=== PATIENT | male | born 1985 | race Caucasian/White ===

== ENCOUNTER 2017-09-20 11:56 | Inpatient (IN) | payer OTHER ==
[2017-09-20 13:17] VITALS: BMI 19.4
--- NOTE | 2017-09-20 13:49 | HP ---
COWS - Scale Resting Pulse: 0= [place] 80 or Below Sweatin=Flushed/Facial Moisture Restless Observation: 3= Extraneous Movement Pupil Size: 2= Moderately Dilated Bone or Joint Aches: 2= Severe Diffuse Aches Runny Nose/ Eye Tearin= Runny Nose/Eyes GI Upset > 30mins: 3= Vomiting/Diarrhea Tremor Observation: 2= Slight Tremor Visible Yawning Observation: 2= >3x During Session Anxiety or Irritability: 2=Irritable/Anxious Goose Flesh Skin: 0=Smooth Skin COWS Score: 20 Admission ROS S - HPI Chief Complaint: I NEED HELP TO STOP USING HEROIN,COCAINE,MARIJUANA DEPENDENCE,SEEKING DETOX, WITHDRAWAL SYMPTOM,LAST DETOX 09/06 EMILY FERN NICOTINE DEPENDENCE SYNCOPE INSOMNIA NO SIGNIFICANT PERIOD OF SOBRIETY WEIGHT LOSS Allergies/Adverse Reactions: Allergies Allergy/AdvReac Type Severity Reaction Status Date / Time No Known Allergies Allergy Verified 09/20/17 13:41 History of Present Illness: THIS 32 YEARS OLD MALE WITH HEROIN,COCAINE,MARIJUANA DEPENDENCE,WITHDRAWAL SYMPTOM, SEEKING DETOX MENTION - Ebola screening Have you traveled outside of the country in the last 21 days: No (N) Have you had contact with anyone from an Ebola affected area: No Have you been sick,other than usual withdrawal symptoms: No Do you have a fever: No - Review of Systems Constitutional: Chills, Loss of Appetite, Malaise, Night Sweats, Changes in sleep, Weakness, Unintentional Wgt. Loss EENT: reports: Tearing, Nose Congestion Respiratory: reports: No Symptoms reported Cardiac: reports: No Symptoms Reported GI: reports: Diarrhea, Nausea, Vomiting, Abdominal cramping : reports: No Symptoms Reported Musculoskeletal: reports: Back Pain, Joint Pain, Muscle Pain, Joint Stiffness Integumentary: reports: Dryness Neuro: reports: Headache, Tremors Endocrine: reports: No Symptoms Reported Hematology: reports: No Symptoms Reported Psychiatric: reports: No Sypmtoms Reported Patient History - Patient Medical History Hx Anemia: No Hx Asthma: No Hx Chronic Obstructive Pulmonary Disease (COPD): No Hx Cancer: No Hx Cardiac Disorders: No Hx Congestive Heart Failure: No Hx Hypertension: No Hx Hypercholesterolemia: No Hx Pacemaker: No HX Cerebrovascular Accident: No Hx Seizures: No Hx Dementia: No Hx Diabetes: No Hx Gastrointestinal Disorders: No Hx Liver Disease: No Hx Genitourinary Disorders: No Hx Sexually Transmitted Disorders: No Hx Renal Disease (ESRD): No Hx Thyroid Disease: No Hx Human Immunodeficiency Virus (HIV): No (LAST 09/06 NEGATIVE) Hx Hepatitis C: No Hx Depression: No Hx Suicide Attempt: No Hx Bipolar Disorder: No Hx Schizophrenia: No Other Medical History: INSOMNIA,ANXIETY,NO SUICIDAL,NO HOMICIDAL - Patient Surgical History Past Surgical History: No - PPD History Previous Implant?: Yes Documented Results: Negative w/o proof Implanted On Prior R Admission?: No PPD to be Administered?: Yes - Smoking Cessation Smoking history: Current every day smoker Have you smoked in the past 12 months: Yes Aproximately how many cigarettes per day: 10 Cigars Per Day: 0 Hx Chewing Tobacco Use: No Initiated information on smoking cessation: Yes 'Breaking Loose' booklet given: 09/20/17 - Substance & Tx. History Hx Alcohol Use: No Hx Substance Use: Yes Substance Use Type: Cocaine, Heroin, Tranquilizers Hx Substance Use Treatment: Yes ([facility] 09/06) - Substances Abused Heroin Route: Injection Frequency: Daily Amount used: 30 bags Age of first use: 22 Date of Last Use: 09/20/17 Marijuana/Hashish Route: Smoking Frequency: Daily Amount used: 2 grams Age of first use: 19 Date of Last Use: 09/19/17 Cocaine Route: Injection Frequency: 1-3 times last 30 days Amount used: 1/4 of gram Age of first use: 23 Date of Last Use: 09/17/17 Family Disease History - Family Disease History Family History: Denies Admission Physical Exam S - Vital Signs Vital Signs: Vital Signs - 24 hr 09/20/17 13:15 Temperature 96 F L Pulse Rate 50 L Respiratory 18 Rate Blood Pressure 89/46 - Physical General Appearance: Yes: Moderate Distress, Tremorous, Irritable, Sweating, Anxious HEENTM: Yes: Normal ENT Inspection, GABRIEL, Pharynx Normal Respiratory: Yes: Lungs Clear, Normal Breath Sounds, No Respiratory Distress Neck: Yes: Within Normal Limits, Supple, Trachea in good position Breast: Yes: Within Normal Limits Cardiology: Yes: Within Normal Limits, Regular Rhythm, Regular Rate, S1, S2 Abdominal: Yes: Within Normal Limits, Normal Bowel Sounds, Non Tender, Soft Genitourinary: Yes: Within Normal Limits Back: Yes: Muscle Spasm Musculoskeletal: Yes: full range of Motion, Back pain, Muscle Pain Extremities: Yes: Tremors, Other Neurological: Yes: instrument lens grinder II-XII NML intact, Alert, Motor Strength 5/5 Integumentary: Yes: Dry, Track Garff Lymphatic: Yes: Within Normal Limits - Diagnostic (1) Opioid dependence with withdrawal Current Visit: Yes Status: Acute (2) Cocaine dependence Current Visit: Yes Status: Acute (3) Cannabis dependence Current Visit: Yes Status: Acute (4) Weight loss Current Visit: Yes Status: Acute (5) Anxiety Current Visit: Yes Status: Acute (6) Depression Current Visit: Yes Status: Acute Cleared for Admission [facility] - Detox or Rehab [facility] Level of Care: Medically Managed Detox Regimen/Protocol: Methadone [facility] Breath Alcohol Content Breath Alcohol Content: 0 Urine Drug Screen - Results Drug Screen Negative: No Urine Drug Screen Results: THC-Marijuana, DECLAN-Cocaine, OPI-Opiates
[2017-09-20] MEDS ORDERED: LOPERAMIDE HCL 2 MG CAPSULE PO PRN (14:02)
[2017-09-20] MEDS ORDERED: IBUPROFEN 400 MG TABLET (FP) PO PRN (14:02)
[2017-09-20] MEDS ORDERED: NICOTINE POLACRILEX 2 MG GUM BUC PRN (14:02)
[2017-09-20] MEDS ORDERED: P-EPHED 60MG/TRIPROLIDI 2.5MG TABLET PO PRN (14:02)
[2017-09-20] MEDS ORDERED: hydrOXYzine PAMOATE 25 MG CAPSULE (FP) PO PRN (14:02)
[2017-09-20] MEDS ORDERED: ACETAMINOPHEN 325 MG TABLET (FP) PO PRN (14:02)
[2017-09-20] MEDS ORDERED: MAGNESIUM CITRATE 300 ML BOTTLE PO PRN (14:02)
[2017-09-20] MEDS ORDERED: MENTHOL/PHENOL 1 EACH UD MM PRN (14:02)
[2017-09-20] MEDS ORDERED: MAGNESIUM HYDROX 2400MG/30ML ORAL SUSPENSION 30 ML CUP PO PRN (14:02)
[2017-09-20] MEDS ORDERED: METHADONE HCL 10 MG TABLET (FOR DETOX USE ONLY) PO ONE ×2 (14:08→23:00)
[2017-09-20] MEDS: diazePAM 5 MG TABLET PO PRN ×2 (15:03→19:07)
[2017-09-20] MEDS: NICOTINE 21 MG/24 HOURS TOPICAL PATCH TD SCH (15:07)
--- NOTE | 2017-09-20 16:11 | CONSULT ---
[facility] Psychiatric Consult - Data Date of interview: 09/20/17 Admission source: [facility] Identifying data: This is 32 years old male , single, homeless, with no psychiatric hospitalization history, intoxicated with: Opioids, Cocaine and Cannabis Substance Abuse History: - Smoking Cessation. Smoking history: Current every day smoker. Have you smoked in the past 12 months: Yes. Aproximately how many cigarettes per day: 10. Cigars Per Day: 0. Hx Chewing Tobacco Use: No. Initiated information on smoking cessation: Yes. 'Breaking Loose' booklet given : 09/20/17. - Substance & Tx. History. Hx Alcohol Use: No. Hx Substance Use: Yes. Substance Use Type: Cocaine, Heroin, Tranquilizers. Hx Substance Use Treatment: Yes ([facility] 09/06). Patient minimizing his substance abuse history, urine sample positive for Cocaine and Cannabis Medical History: Weight loss history Psychiatric History: Patient reports history of anxiety and depression, reports no suicidal history, reports taking prior to admission: Remeron 30mg po qhs Physical/Sexual Abuse/Trauma History: Denies Additional Comment: Remeron 30mg po qhs Mental Status Exam - Mental Status Exam Alert and Oriented to: Person Cognitive Function: Fair Patient Appearance: Unkempt Mood: Sad Affect: Flat Patient Behavior: Sedated Speech Pattern: Delayed Voice Loudness: Mildly Soft/Quiet Thought Process: Circumstantial Thought Disorder: Being Controlled Hallucinations: Denies Suicidal Ideation: Denies Homicidal Ideation: Denies Insight/Judgement: Fair Sleep: Difficulty falling asleep Appetite: Weight loss Muscle strength/Tone: Mild Hypotonicity Gait/Station: Shuffling Additional Comments: Remeron 30mg po qhs Psychiatric Findings - Problem List ([place] 1, 2,3) (1) Drug-induced mood disorder Current Visit: Yes Status: Acute (2) Anxiety Current Visit: Yes Status: Acute (3) Cannabis dependence Current Visit: Yes Status: Acute (4) Cocaine dependence Current Visit: Yes Status: Acute (5) Opioid dependence with withdrawal Current Visit: Yes Status: Acute - Initial Treatment Plan Initial Treatment Plan: Remeron 30mg po qhs
[2017-09-20 18:12] LABS: URINE APPEARANCE CLOUDY; URINE BILIRUBIN NEGATIVE (NEGATIVE); URINE BLOOD NEGATIVE (NEGATIVE); URINE COLOR LTYELLOW; URINE GLUCOSE (UA) NEGATIVE (NEGATIVE); URINE KETONE NEGATIVE (NEGATIVE); URINE LEUK ESTERASE NEGATIVE (NEGATIVE); URINE NITRITE NEGATIVE (NEGATIVE); URINE PROTEIN NEGATIVE (NEGATIVE); URINE UROBILINOGEN NEGATIVE mg/dL (0.2-1.0)
[2017-09-20] MEDS: CYCLOBENZAPRINE HCL 10 MG TABLET (FP) PO PRN (22:06)
[2017-09-20] MEDS: THIAMINE HCL 100 MG TABLET (FP) PO SCH (22:06)
[2017-09-20] MEDS: cloNIDine HCL 0.1 MG TABLET PO SCH (22:06)
[2017-09-20] MEDS: MIRTAZAPINE 30 MG TABLET (FP) PO SCH (22:06)
[2017-09-21 09:56] LABS: HEMATOCRIT 38.9 % (35.4-49); HEMOGLOBIN 12.7 GM/dL (11.7-16.9); MCH 30.5 pg (25.7-33.7); MCHC 32.7 g/dl (32.0-35.9); MEAN CELL VOLUME 93.1 fl (80-96); MEAN PLT VOLUME 8.7 fl (7.5-11.1); PLATELET COUNT 190 K/MM3 (134-434); RBC 4.18 M/mm3 (4.00-5.60); WHITE BLOOD COUNT 5.7 K/mm3 (4.0-10.0)
[2017-09-21] MEDS ORDERED: METHADONE HCL 10 MG TABLET (FOR DETOX USE ONLY) PO ONE (10:00)
[2017-09-21 10:09] LABS: ALBUMIN 3.8 g/dl (3.4-5.0); ANION GAP 6 (8-16); BILIRUBIN,TOTAL 0.6 mg/dL (0.2-1.0); BLOOD UREA NITROGEN 13 mg/dL (7-18); CALCIUM 8.4 mg/dL (8.5-10.1); CHLORIDE 104 mmol/L (98-107); CO2 29 mmol/L (21-32); GLUCOSE,RANDOM 75 mg/dL (74-106); SGOT/AST 13 U/L (15-37); SGPT/ALT 21 U/L (12-78); SODIUM 139 mmol/L (136-145); TOT PROT 6.5 g/dl (6.4-8.2)
[2017-09-21 10:10] LABS: ALK PHOS 63 U/L (45-117)
--- NOTE | 2017-09-21 10:13 | EKG ---
Test Reason : Blood Pressure : / mmHG Vent. Rate : 045 BPM Atrial Rate : 045 BPM P-R Int : 172 ms QRS Dur : 088 ms QT Int : 476 ms P-R-T Axes : 055 070 056 degrees QTc Int : 411 ms SINUS BRADYCARDIA WITH SINUS ARRHYTHMIA OTHERWISE NORMAL ECG WHEN COMPARED WITH ECG OF 20-SEP-2017 15:26, NO SIGNIFICANT CHANGE WAS FOUND Confirmed by JESSE MERCER MD ([id number]) on 09/21/2017 10:13:05 AM Referred By: Confirmed By:JESSE MERCER MD
--- NOTE | 2017-09-21 10:17 | EKG ---
Test Reason : Blood Pressure : / mmHG Vent. Rate : 042 BPM Atrial Rate : 042 BPM P-R Int : 158 ms QRS Dur : 084 ms QT Int : 456 ms P-R-T Axes : 040 075 062 degrees QTc Int : 380 ms MARKED SINUS BRADYCARDIA ABNORMAL ECG NO PREVIOUS ECGS AVAILABLE Confirmed by JESSE MERCER MD ([id number]) on 09/21/2017 10:17:13 AM Referred By: Confirmed By:JESSE MERCER MD
[2017-09-21] MEDS: cloNIDine HCL 0.1 MG TABLET PO SCH ×2 (10:29→22:06)
[2017-09-21] MEDS: PRENATAL VITAMINS W/ FOLIC ACID TABLET (FP) PO SCH (10:29)
[2017-09-21] MEDS: NICOTINE 21 MG/24 HOURS TOPICAL PATCH TD SCH (10:30)
--- NOTE | 2017-09-21 13:36 | PN ---
[facility] CIWA - CIWA Score Nausea/Vomitin Muscle Tremors: 3 Anxiety: 3 Agitation: 3 Paroxysmal Sweats: 1-Minimal Palms Moist Orientation: 0-Oriented Tacttile Disturbances: 1-Very Mild Itch/Numbness Auditory Disturbances: 1-Very Mild Visual Disturbances: 0-None Headache: 2-Mild CIWA-Ar Total Score: 17 BHS COWS - Scale Resting Pulse: 0= [place] 80 or Below Sweatin= Chills/Flushing Restless Observation: 3= Extraneous Movement Pupil Size: 1= Pupils >than Normal Bone or Joint Aches: 2= Severe Diffuse Aches Runny Nose/ Eye Tearin= Runny Nose/Eyes GI Upset > 30mins: 2= Nausea/Diarrhea Tremor Observation of Outstretched Hands: 2= Slight Tremor Visible Yawning Observation: 1= 1-2x During Session Anxiety or Irritability: 2=Irritable/Anxious Goose Flesh Skin: 0=Smooth Skin COWS Score: 16 S Progress Note (SOAP) Subjective: ALERT,IRRITABLE,ANXIOUS,INTERRUPTED SLEEP,TREMOR,PAIN IN THE BODY AND BACK Objective: 09/21/17 13:34 Vital Signs Temperature 97.5 F L 09/21/17 10:12 Pulse Rate 72 09/21/17 10:12 Respiratory Rate 17 09/21/17 10:12 Blood Pressure 99/53 09/21/17 10:12 O2 Sat by Pulse Oximetry (%) EKG SINUS BRADYCARDIA WITH SINUS ARRHYTHMIA 45/MIN NO CHEST PAIN,NO SOB,NO DIZZINESS Laboratory Last Values WBC 5.7 K/mm3 (4.0-10.0) 09/21/17 06:00 RBC 4.18 M/mm3 (4.00-5.60) 09/21/17 06:00 Hgb 12.7 GM/dL (11.7-16.9) 09/21/17 06:00 Hct 38.9 % (35.4-49) 09/21/17 06:00 MCV 93.1 fl (80-96) 09/21/17 06:00 MCH 30.5 pg (25.7-33.7) 09/21/17 06:00 MCHC 32.7 g/dl (32.0-35.9) 09/21/17 06:00 RDW 13.0 % (11.9-15.9) 09/21/17 06:00 Plt Count 190 K/MM3 (134-434) 09/21/17 06:00 MPV 8.7 fl (7.5-11.1) 09/21/17 06:00 Sodium 139 mmol/L (136-145) 09/21/17 06:00 Potassium 4.0 mmol/L (3.5-5.1) 09/21/17 06:00 Chloride 104 mmol/L (98-107) 09/21/17 06:00 Carbon Dioxide 29 mmol/L (21-32) 09/21/17 06:00 Anion Gap 6 (8-16) L 09/21/17 06:00 BUN 13 mg/dL (7-18) 09/21/17 06:00 Creatinine 1.0 mg/dL (0.7-1.3) 09/21/17 06:00 Creat Clearance w eGFR > 60 (>60) 09/21/17 06:00 Random Glucose 75 mg/dL (74-106) 09/21/17 06:00 Calcium 8.4 mg/dL (8.5-10.1) L 09/21/17 06:00 Total Bilirubin 0.6 mg/dL (0.2-1.0) 09/21/17 06:00 AST 13 U/L (15-37) L 09/21/17 06:00 ALT 21 U/L (12-78) 09/21/17 06:00 Alkaline Phosphatase 63 U/L (45-117) 09/21/17 06:00 Total Protein 6.5 g/dl (6.4-8.2) 09/21/17 06:00 Albumin 3.8 g/dl (3.4-5.0) 09/21/17 06:00 Urine Color Ltyellow 09/20/17 17:00 Urine Appearance Cloudy 09/20/17 17:00 Urine pH 7.0 (5.0-8.0) 09/20/17 17:00 Ur Specific [place] 1.016 (1.001-1.035) 09/20/17 17:00 Urine Protein Negative (NEGATIVE) 09/20/17 17:00 Urine Glucose (UA) Negative (NEGATIVE) 09/20/17 17:00 Urine Ketones Negative (NEGATIVE) 09/20/17 17:00 Urine Blood Negative (NEGATIVE) 09/20/17 17:00 Urine Nitrite Negative (NEGATIVE) 09/20/17 17:00 Urine Bilirubin Negative (NEGATIVE) 09/20/17 17:00 Urine Urobilinogen Negative mg/dL (0.2-1.0) 09/20/17 17:00 Ur Leukocyte Esterase Negative (NEGATIVE) 09/20/17 17:00 RPR Titer Nonreactive (NONREACTIVE) 09/21/17 06:00 HIV 1&2 Antibody Screen Negative 09/20/17 14:00 HIV P24 Antigen Negative 09/20/17 14:00 Assessment: 09/21/17 13:36 WITHDRAWAL SYMPTOM Plan: CONTINUE DETOX
[2017-09-21] MEDS: diazePAM 5 MG TABLET PO PRN ×2 (14:22→22:06)
[2017-09-21] MEDS: CYCLOBENZAPRINE HCL 10 MG TABLET (FP) PO PRN (22:06)
[2017-09-21] MEDS: THIAMINE HCL 100 MG TABLET (FP) PO SCH (22:06)
[2017-09-21] MEDS: MIRTAZAPINE 30 MG TABLET (FP) PO SCH (22:06)
[2017-09-22] MEDS ORDERED: METHADONE HCL 5 MG TABLET (FOR DETOX USE ONLY) PO ONE (10:00)
[2017-09-22] MEDS: NICOTINE 21 MG/24 HOURS TOPICAL PATCH TD SCH (10:16)
[2017-09-22] MEDS: diazePAM 5 MG TABLET PO PRN ×4 (10:16→22:25)
[2017-09-22] MEDS: cloNIDine HCL 0.1 MG TABLET PO SCH ×2 (10:16→22:23)
[2017-09-22] MEDS: PRENATAL VITAMINS W/ FOLIC ACID TABLET (FP) PO SCH (10:16)
--- NOTE | 2017-09-22 11:44 | PN ---
BHS COWS - Scale Resting Pulse: 1= [place] 81-100 Sweatin= Chills/Flushing Restless Observation: 3= Extraneous Movement Pupil Size: 1= Pupils >than Normal Bone or Joint Aches: 2= Severe Diffuse Aches Runny Nose/ Eye Tearin= Runny Nose/Eyes GI Upset > 30mins: 3= Vomiting/Diarrhea Tremor Observation of Outstretched Hands: 2= Slight Tremor Visible Yawning Observation: 1= 1-2x During Session Anxiety or Irritability: 2=Irritable/Anxious Goose Flesh Skin: 0=Smooth Skin COWS Score: 18 BHS Progress Note (SOAP) Subjective: ALERT,IRRITABLE,ANXIOUS,INTERRUPTED SLEEP,PAIN IN THE BODY AND BACK Objective: 09/22/17 11:43 Vital Signs Temperature 97.2 F L 09/22/17 10:09 Pulse Rate 82 09/22/17 10:09 Respiratory Rate 20 09/22/17 10:09 Blood Pressure 124/73 09/22/17 10:09 O2 Sat by Pulse Oximetry (%) Assessment: 09/22/17 11:43 WITHDRAWAL SYMPTOM Plan: CONTINUE DETOX
[2017-09-22] MEDS: THIAMINE HCL 100 MG TABLET (FP) PO SCH (22:23)
[2017-09-22] MEDS: CYCLOBENZAPRINE HCL 10 MG TABLET (FP) PO PRN (22:23)
[2017-09-22] MEDS: MIRTAZAPINE 30 MG TABLET (FP) PO SCH (22:23)
[2017-09-22] MEDS: guaiFENesin/D-METHORPHAN HB 10 ML UNIT-DOSE CUPS PO PRN (22:23)
[2017-09-23] MEDS ORDERED: METHADONE HCL 5 MG TABLET (FOR DETOX USE ONLY) PO ONE (10:00)
[2017-09-23] MEDS: cloNIDine HCL 0.1 MG TABLET PO SCH ×2 (10:18→22:28)
[2017-09-23] MEDS: PRENATAL VITAMINS W/ FOLIC ACID TABLET (FP) PO SCH (10:18)
[2017-09-23] MEDS: diazePAM 5 MG TABLET PO PRN (10:18)
[2017-09-23] MEDS: NICOTINE 21 MG/24 HOURS TOPICAL PATCH TD SCH (10:19)
[2017-09-23] MEDS: MAG HYDROX/AL HYDROX/SIMETH 30 ML UNIT-DOSE CUP PO PRN ×2 (12:06→22:30)
[2017-09-23] MEDS ORDERED: ALBUTEROL SO4 18 GM HFA INHALER IH PRN (13:51)
--- NOTE | 2017-09-23 13:58 | PN ---
BHS Progress Note (SOAP) Subjective: sweat tremor anxiety dry cough Objective: 09/23/17 13:56 Vital Signs Temperature 97.5 F L 09/23/17 10:12 Pulse Rate 74 09/23/17 10:12 Respiratory Rate 16 09/23/17 10:12 Blood Pressure 110/64 09/23/17 10:12 O2 Sat by Pulse Oximetry (%) Laboratory Last Values WBC 5.7 K/mm3 (4.0-10.0) 09/21/17 06:00 RBC 4.18 M/mm3 (4.00-5.60) 09/21/17 06:00 Hgb 12.7 GM/dL (11.7-16.9) 09/21/17 06:00 Hct 38.9 % (35.4-49) 09/21/17 06:00 MCV 93.1 fl (80-96) 09/21/17 06:00 MCH 30.5 pg (25.7-33.7) 09/21/17 06:00 MCHC 32.7 g/dl (32.0-35.9) 09/21/17 06:00 RDW 13.0 % (11.9-15.9) 09/21/17 06:00 Plt Count 190 K/MM3 (134-434) 09/21/17 06:00 MPV 8.7 fl (7.5-11.1) 09/21/17 06:00 Sodium 139 mmol/L (136-145) 09/21/17 06:00 Potassium 4.0 mmol/L (3.5-5.1) 09/21/17 06:00 Chloride 104 mmol/L (98-107) 09/21/17 06:00 Carbon Dioxide 29 mmol/L (21-32) 09/21/17 06:00 Anion Gap 6 (8-16) L 09/21/17 06:00 BUN 13 mg/dL (7-18) 09/21/17 06:00 Creatinine 1.0 mg/dL (0.7-1.3) 09/21/17 06:00 Creat Clearance w eGFR > 60 (>60) 09/21/17 06:00 Random Glucose 75 mg/dL (74-106) 09/21/17 06:00 Calcium 8.4 mg/dL (8.5-10.1) L 09/21/17 06:00 Total Bilirubin 0.6 mg/dL (0.2-1.0) 09/21/17 06:00 AST 13 U/L (15-37) L 09/21/17 06:00 ALT 21 U/L (12-78) 09/21/17 06:00 Alkaline Phosphatase 63 U/L (45-117) 09/21/17 06:00 Total Protein 6.5 g/dl (6.4-8.2) 09/21/17 06:00 Albumin 3.8 g/dl (3.4-5.0) 09/21/17 06:00 Urine Color Ltyellow 09/20/17 17:00 Urine Appearance Cloudy 09/20/17 17:00 Urine pH 7.0 (5.0-8.0) 09/20/17 17:00 Ur Specific [place] 1.016 (1.001-1.035) 09/20/17 17:00 Urine Protein Negative (NEGATIVE) 09/20/17 17:00 Urine Glucose (UA) Negative (NEGATIVE) 09/20/17 17:00 Urine Ketones Negative (NEGATIVE) 09/20/17 17:00 Urine Blood Negative (NEGATIVE) 09/20/17 17:00 Urine Nitrite Negative (NEGATIVE) 09/20/17 17:00 Urine Bilirubin Negative (NEGATIVE) 09/20/17 17:00 Urine Urobilinogen Negative mg/dL (0.2-1.0) 09/20/17 17:00 Ur Leukocyte Esterase Negative (NEGATIVE) 09/20/17 17:00 RPR Titer Nonreactive (NONREACTIVE) 09/21/17 06:00 HIV 1&2 Antibody Screen Negative 09/20/17 14:00 HIV P24 Antigen Negative 09/20/17 14:00 lab noted Assessment: 09/23/17 13:56 withdrawal sx history of asthma Plan: continue detox chest x ray ventolin 2 puff prn
[2017-09-23] MEDS: guaiFENesin/D-METHORPHAN HB 10 ML UNIT-DOSE CUPS PO PRN ×2 (14:45→22:30)
[2017-09-23] MEDS: THIAMINE HCL 100 MG TABLET (FP) PO SCH (22:28)
[2017-09-23] MEDS: CYCLOBENZAPRINE HCL 10 MG TABLET (FP) PO PRN (22:29)
[2017-09-23] MEDS: MIRTAZAPINE 30 MG TABLET (FP) PO SCH (22:29)
[2017-09-24] MEDS ORDERED: METHADONE HCL 10 MG TABLET (FOR DETOX USE ONLY) PO ONE (10:00)
[2017-09-24] MEDS ORDERED: ASPIRIN 81 MG CHEWABLE TABLETS PO SCH (10:00)
--- NOTE | 2017-09-24 10:12 | PN ---
BHS Progress Note (SOAP) Subjective: less withdrawal sx mild tremor calm tolerates regular food and fluid well interact with peers in day room Objective: 09/24/17 10:09 Vital Signs Temperature 96.4 F L 09/24/17 06:23 Pulse Rate 78 09/24/17 06:23 Respiratory Rate 18 09/24/17 06:23 Blood Pressure 101/50 09/24/17 06:23 O2 Sat by Pulse Oximetry (%) Laboratory Last Values WBC 5.7 K/mm3 (4.0-10.0) 09/21/17 06:00 RBC 4.18 M/mm3 (4.00-5.60) 09/21/17 06:00 Hgb 12.7 GM/dL (11.7-16.9) 09/21/17 06:00 Hct 38.9 % (35.4-49) 09/21/17 06:00 MCV 93.1 fl (80-96) 09/21/17 06:00 MCH 30.5 pg (25.7-33.7) 09/21/17 06:00 MCHC 32.7 g/dl (32.0-35.9) 09/21/17 06:00 RDW 13.0 % (11.9-15.9) 09/21/17 06:00 Plt Count 190 K/MM3 (134-434) 09/21/17 06:00 MPV 8.7 fl (7.5-11.1) 09/21/17 06:00 Sodium 139 mmol/L (136-145) 09/21/17 06:00 Potassium 4.0 mmol/L (3.5-5.1) 09/21/17 06:00 Chloride 104 mmol/L (98-107) 09/21/17 06:00 Carbon Dioxide 29 mmol/L (21-32) 09/21/17 06:00 Anion Gap 6 (8-16) L 09/21/17 06:00 BUN 13 mg/dL (7-18) 09/21/17 06:00 Creatinine 1.0 mg/dL (0.7-1.3) 09/21/17 06:00 Creat Clearance w eGFR > 60 (>60) 09/21/17 06:00 Random Glucose 75 mg/dL (74-106) 09/21/17 06:00 Calcium 8.4 mg/dL (8.5-10.1) L 09/21/17 06:00 Total Bilirubin 0.6 mg/dL (0.2-1.0) 09/21/17 06:00 AST 13 U/L (15-37) L 09/21/17 06:00 ALT 21 U/L (12-78) 09/21/17 06:00 Alkaline Phosphatase 63 U/L (45-117) 09/21/17 06:00 Total Protein 6.5 g/dl (6.4-8.2) 09/21/17 06:00 Albumin 3.8 g/dl (3.4-5.0) 09/21/17 06:00 Urine Color Ltyellow 09/20/17 17:00 Urine Appearance Cloudy 09/20/17 17:00 Urine pH 7.0 (5.0-8.0) 09/20/17 17:00 Ur Specific [place] 1.016 (1.001-1.035) 09/20/17 17:00 Urine Protein Negative (NEGATIVE) 09/20/17 17:00 Urine Glucose (UA) Negative (NEGATIVE) 09/20/17 17:00 Urine Ketones Negative (NEGATIVE) 09/20/17 17:00 Urine Blood Negative (NEGATIVE) 09/20/17 17:00 Urine Nitrite Negative (NEGATIVE) 09/20/17 17:00 Urine Bilirubin Negative (NEGATIVE) 09/20/17 17:00 Urine Urobilinogen Negative mg/dL (0.2-1.0) 09/20/17 17:00 Ur Leukocyte Esterase Negative (NEGATIVE) 09/20/17 17:00 RPR Titer Nonreactive (NONREACTIVE) 09/21/17 06:00 HIV 1&2 Antibody Screen Negative 09/20/17 14:00 HIV P24 Antigen Negative 09/20/17 14:00 lab noted Assessment: 09/24/17 10:10 withdrawal sx health teaching on addiction and its complications, as well as the important of psychosocial therapy combine with medication assisted treatment Plan: continue detox strong recommend the patient follow up with aftercare for maintenance sobriety
[2017-09-24] MEDS: PRENATAL VITAMINS W/ FOLIC ACID TABLET (FP) PO SCH (10:44)
[2017-09-24] MEDS: NICOTINE 21 MG/24 HOURS TOPICAL PATCH TD SCH (10:44)
[2017-09-24] MEDS: cloNIDine HCL 0.1 MG TABLET PO SCH ×2 (10:44→22:03)
[2017-09-24] MEDS: CYCLOBENZAPRINE HCL 10 MG TABLET (FP) PO PRN (22:02)
[2017-09-24] MEDS: MIRTAZAPINE 30 MG TABLET (FP) PO SCH (22:02)
[2017-09-24] MEDS: THIAMINE HCL 100 MG TABLET (FP) PO SCH (22:02)
[2017-09-25] MEDS ORDERED: METHADONE HCL 5 MG TABLET (FOR DETOX USE ONLY) PO ONE (06:00)
[2017-09-25 07:06] VITALS: BP 109/65; PULSE 97; TEMP 97.7
--- NOTE | 2017-09-25 09:39 | DS ---
[facility] Detox Discharge Summary Admission Date: 09/20/17 Discharge Date: 09/25/17 - History Present History: Opioid Dependence - Physical Exam Results Vital Signs: Vital Signs Temperature 97.7 F 09/25/17 06:00 Pulse Rate 97 H 09/25/17 06:00 Respiratory Rate 16 09/25/17 06:00 Blood Pressure 109/65 09/25/17 06:00 O2 Sat by Pulse Oximetry (%) Pertinent Admission Physical Exam Findings: withdrawal sx Vital Signs Temperature 97.7 F 09/25/17 06:00 Pulse Rate 97 H 09/25/17 06:00 Respiratory Rate 16 09/25/17 06:00 Blood Pressure 109/65 09/25/17 06:00 O2 Sat by Pulse Oximetry (%) Laboratory Last Values WBC 5.7 K/mm3 (4.0-10.0) 09/21/17 06:00 RBC 4.18 M/mm3 (4.00-5.60) 09/21/17 06:00 Hgb 12.7 GM/dL (11.7-16.9) 09/21/17 06:00 Hct 38.9 % (35.4-49) 09/21/17 06:00 MCV 93.1 fl (80-96) 09/21/17 06:00 MCH 30.5 pg (25.7-33.7) 09/21/17 06:00 MCHC 32.7 g/dl (32.0-35.9) 09/21/17 06:00 RDW 13.0 % (11.9-15.9) 09/21/17 06:00 Plt Count 190 K/MM3 (134-434) 09/21/17 06:00 MPV 8.7 fl (7.5-11.1) 09/21/17 06:00 Sodium 139 mmol/L (136-145) 09/21/17 06:00 Potassium 4.0 mmol/L (3.5-5.1) 09/21/17 06:00 Chloride 104 mmol/L (98-107) 09/21/17 06:00 Carbon Dioxide 29 mmol/L (21-32) 09/21/17 06:00 Anion Gap 6 (8-16) L 09/21/17 06:00 BUN 13 mg/dL (7-18) 09/21/17 06:00 Creatinine 1.0 mg/dL (0.7-1.3) 09/21/17 06:00 Creat Clearance w eGFR > 60 (>60) 09/21/17 06:00 Random Glucose 75 mg/dL (74-106) 09/21/17 06:00 Calcium 8.4 mg/dL (8.5-10.1) L 09/21/17 06:00 Total Bilirubin 0.6 mg/dL (0.2-1.0) 09/21/17 06:00 AST 13 U/L (15-37) L 09/21/17 06:00 ALT 21 U/L (12-78) 09/21/17 06:00 Alkaline Phosphatase 63 U/L (45-117) 09/21/17 06:00 Total Protein 6.5 g/dl (6.4-8.2) 09/21/17 06:00 Albumin 3.8 g/dl (3.4-5.0) 09/21/17 06:00 Urine Color Ltyellow 09/20/17 17:00 Urine Appearance Cloudy 09/20/17 17:00 Urine pH 7.0 (5.0-8.0) 09/20/17 17:00 Ur Specific [place] 1.016 (1.001-1.035) 09/20/17 17:00 Urine Protein Negative (NEGATIVE) 09/20/17 17:00 Urine Glucose (UA) Negative (NEGATIVE) 09/20/17 17:00 Urine Ketones Negative (NEGATIVE) 09/20/17 17:00 Urine Blood Negative (NEGATIVE) 09/20/17 17:00 Urine Nitrite Negative (NEGATIVE) 09/20/17 17:00 Urine Bilirubin Negative (NEGATIVE) 09/20/17 17:00 Urine Urobilinogen Negative mg/dL (0.2-1.0) 09/20/17 17:00 Ur Leukocyte Esterase Negative (NEGATIVE) 09/20/17 17:00 RPR Titer Nonreactive (NONREACTIVE) 09/21/17 06:00 HIV 1&2 Antibody Screen Negative 09/20/17 14:00 HIV P24 Antigen Negative 09/20/17 14:00 lab noted - Treatment Hospital Course: Detox Protocol Followed, Detoxed Safely, Responded well, Discharged Condition Good, Rehab Referral Accepted Patient has Accepted a Rehab Referral to: as per counselor arranged - Medication Discharge Medications: Ambulatory Orders Gabapentin [Neurontin -] 300 mg PO Q8H 09/20/17 Mirtazapine [Remeron -] 30 mg PO HS #30 tablet 09/20/17 - Diagnosis (1) Opioid dependence with withdrawal Current Visit: Yes Status: Acute - AMA Did Patient Leave Against Medical Advice: No
== END 2017-09-25 09:38 | disposition home or self-care (01) | DRG 773 ==
LOC: YASAS 11:56 → Y6N 14:06
PROVIDERS: ADMIT Internal Medicine; ATTEND Internal Medicine
PROC: HZ2ZZZZ Detoxification Services for Substance Abuse Treatment (ICD-10-PCS; principal; 2017-09-20)
DX: F11.23 Opioid dependence with withdrawal (principal); F14.20 Cocaine dependence, uncomplicated; F12.20 Cannabis dependence, uncomplicated; F17.210 Nicotine dependence, cigarettes, uncomplicated; F41.9 Anxiety disorder, unspecified; F32.9 Major depressive disorder, single episode, unspecified; F19.24 Other psychoactive substance dependence with psychoactive substance-induced mood disorder; Z87.898 Personal history of other specified conditions
CPT/HCPCS: 36415; 80053; 81003; 85027; 86593; 93005; 93010; J0735